=== PATIENT | female | born 1975 | race Caucasian/White ===

== ENCOUNTER 2016-11-14 17:35 | Emergency (ER) | payer MEDICAID ==
[~2016-11-14] VITALS: Ht 165.1 cm; Wt 149.7 kg
--- NOTE | 2016-11-14 17:36 | NUR ---
PATIENT IS NOT IN THE WAITNG ROOM. UNABLE TO TRIAGE PATIENT AT THIS TIME. WILL TRY AGAIN LATER.
[2016-11-14] MEDS ORDERED: ONDANSETRON HCL/PF 4 MG/2 ML VIAL IVP ONE (18:00)
[2016-11-14] MEDS ORDERED: KETOROLAC TROMETHAMINE INJ 30 MG/ML VIAL IV ONE (18:00)
[2016-11-14] MEDS ORDERED: IV NS 0.9% 1,000 ML BAG IV ONE (18:00)
--- NOTE | 2016-11-14 18:00 | NUR ---
PT PRESENTED TO THE ER WITH A C/O ABD PAIN AND VAGINAL BLEEDING X1WEEK. PT STATED THAT THIS IS NOT PART OF HER NORMAL MENSES. PT HAS BEEN GOING THROUGH A PAD A WEEK. PT IS ALSO C/O VAGINAL DISCHARGE THAT IS MALODOROUS.
--- NOTE | 2016-11-14 18:01 | NUR ---
PT AMBULATED TO THE BATHROOM TO GIVE A URINE SAMPLE.
[2016-11-14 18:02] LABS: BASOPHILS % (AUTO) 0.3 % (0.0-2.0); EOSINOPHILS # (AUTO) 0.1 /CMM (0.0-0.7); EOSINOPHILS % (AUTO) 0.8 % (0.0-6.0); HEMATOCRIT 37 % (33-45); HEMOGLOBIN 11.9 g/dL (11.5-14.8); LYMPHOCYTES # (AUTO) 2.5 /CMM (0.8-4.8); LYMPHOCYTES % (AUTO) 18.5 % (20.0-44.0); MEAN CORPUSCULAR HEMOGLOBIN 21 PG (26.0-33.0); MEAN CORPUSCULAR HGB CONC 32 g/dl (31.0-36.0); MEAN CORPUSCULAR VOLUME 65 fL (82-100); MONOCYTES # (AUTO) 0.7 /CMM (0.1-1.30); MONOCYTES % (AUTO) 4.9 % (2.0-12.0); NEUTROPHILS # (AUTO) 10.1 /CMM (1.8-8.9); NEUTROPHILS % (AUTO) 75.5 % (43.0-81.0); PLATELET COUNT (AUTO) 528 /CMM (150-450); RDW COEFFICIENT OF VARIATION 17.7 (11.5-15.0); RED BLOOD CELL COUNT(AUTO) 5.69 MIL/uL (4.0-5.2); WHITE BLOOD COUNT (AUTO) 13.4 K/uL (4.3-11.0)
--- NOTE | 2016-11-14 18:10 | NUR ---
URINE SAMPLE OBTAINED AND SENT TO LAB.
--- NOTE | 2016-11-14 18:12 | NUR ---
18G IV STARTED IN RAC.
[2016-11-14 18:13] LABS: CALCIUM, SERUM 8.5 mg/dL (8.5-10.1); CREATININE 0.8 mg/dL (0.6-1.3); POTASSIUM 3.8 mmol/L (3.5-5.1)
[2016-11-14] MEDS ORDERED: IV SET PRIMARY 1 EA INFUS.SET MC ONE (18:17)
[2016-11-14] MEDS ORDERED: IV NS 0.9% 1,000 ML ONE (18:17)
[2016-11-14] MEDS ORDERED: KETOROLAC TROMETHAMINE INJ 30 MG/ML VIAL ONE (18:17)
[2016-11-14] MEDS ORDERED: ONDANSETRON HCL/PF 4 MG/2 ML VIAL ONE (18:17)
[2016-11-14 18:22] LABS: APPEARANCE,URINE Clear (CLEAR); BILIRUBIN,URINE Negative (NEGATIVE); BLOOD, URINE Moderate Ery/uL (NEGATIVE); COLOR,URINE Yellow (YELLOW); KETONES,URINE Negative (NEGATIVE); LEUKOCYTE ESTERASE ,URINE Small (NEGATIVE); NITRITE, URINE Negative (NEGATIVE); PROTEIN,URINE Trace mg/dl (NEGATIVE); UGLUCOSE Negative (NEGATIVE); UROBILINOGEN,URINE 0.2 EU/dL (0.2)
[2016-11-14 18:25] LABS: PREGNANCY TEST URINE QUAL NEGATIVE (NEGATIVE)
--- NOTE | 2016-11-14 18:40 | NUR ---
PELVIC EXAM DONE BY DR. CONNELLY. Female crew car driver accompanied female patient for DR. CASH.
[2016-11-14 18:41] LABS: WBC,URINE 81-100 /HPF (0-3)
[2016-11-14 18:42] LABS: ADD URINE CULTURE YES; BACTERIA,URINE Moderate /HPF (None Seen); SQUAMOUS EPITHELIAL CELL,UR Few /HPF (None Seen)
[2016-11-14 18:43] LABS: MUCUS,URINE Many /LPF (None Seen); URINE AMORPHOUS URATE Few /HPF (None Seen)
--- NOTE | 2016-11-14 18:46 | NUR ---
US TECH IS AT THE BEDSIDE.
--- NOTE | 2016-11-14 20:23 | NUR ---
Patient discharged to home in stable condition. Written and verbal after care instructions given. Patient verbalizes understanding of instruction. PT ambulatory with a steady gait VITAL SIGNS WITHIN NORMAL LIMITS.IV removed. Catheter intact and site benign. Pressure and 4x4 applied to site. No bleeding noted.
[2016-11-14 20:26] VITALS: BP 128/75
== END 2016-11-14 20:23 | disposition home or self-care (01) ==
LOC: ER 17:36
DX: N83.209 Unspecified ovarian cyst, unspecified side (principal); N39.0 Urinary tract infection, site not specified; Z88.1 Allergy status to other antibiotic agents
CPT/HCPCS: 36415; 76856; 80048; 81001; 84703; 85025; 87081; 87086; 87110; 96361; 96374; 96375; 99285; A4606; J1885; J2405; J7030; Z7610; 81000-TC